=== PATIENT | female | born 1960 | race Caucasian/White ===

== ENCOUNTER → 2017-12-16 | Outpatient (REF) | payer BC, OTHER | LOC: M LAB REF 13:33 | DX: K14.0 Glossitis (principal) | CPT/HCPCS: 82607 ==

== ENCOUNTER → 2019-03-25 | Outpatient (CLI) | payer BC, OTHER ==
--- NOTE | 2019-03-25 14:32 | REP ---
REASON: Pain. PRIORS: None. Mild degenerative changes are seen throughout the foot. There is no acute fracture. There is a large plantar calcaneal heel spur. Electronically Signed by Doug Brar DO 03/25/2019 03:25 P
== END ==
LOC: M ADAMS 13:35
PROVIDERS: ATTEND Physician Assistant
DX: M77.32 Calcaneal spur, left foot (principal); M19.072 Primary osteoarthritis, left ankle and foot

== ENCOUNTER → 2020-05-05 | Outpatient (REF) | payer BC, OTHER ==
[2020-05-12 12:07] LABS: ANTINUCLEAR ANTIBODIES DIRECT Negative (Negative)
== END ==
LOC: M LAB REF 16:12
PROVIDERS: ATTEND Nurse Practitioner Adult Health
DX: D48.5 Neoplasm of uncertain behavior of skin (principal)

== ENCOUNTER → 2020-07-23 | Outpatient (REF) | payer BC, OTHER ==
[2020-07-23 18:14] LABS: URIC ACID 7.5 MG/DL (2.6-6.0)
[2020-07-24 11:59] LABS: PTH INTACT 56.6 PG/ML (18.5-88.0)
== END ==
LOC: M LAB REF 16:29
PROVIDERS: ATTEND Nurse Practitioner Adult Health
DX: M10.9 Gout, unspecified (principal)

== ENCOUNTER → 2020-09-24 | Outpatient (REF) | payer BC, OTHER | LOC: M LAB REF 12:43 | PROVIDERS: ATTEND Nurse Practitioner Adult Health | DX: M10.9 Gout, unspecified (principal) ==

== ENCOUNTER → 2021-04-16 | Outpatient (CLI) | payer BC, OTHER | LOC: M WUC 13:49 | PROVIDERS: ATTEND Nurse Practitioner Adult Health | DX: M25.552 Pain in left hip (principal) ==

== ENCOUNTER → 2021-06-01 | Outpatient (REF) | payer BC, OTHER ==
[2021-06-03 17:09] LABS: ANTINUCLEAR ANTIBODIES DIRECT Negative (Negative); Lyme Disease IgG/IgM Antibodie <0.91 ISR (0.00-0.90); Lyme Disease IgM Ab Quantitati <0.80 index (0.00-0.79)
== END ==
LOC: M LAB REF 15:57
PROVIDERS: ATTEND Nurse Practitioner Adult Health
DX: R53.83 Other fatigue (principal)

== ENCOUNTER → 2021-09-01 | Outpatient (REF) | payer BC, OTHER | LOC: M LAB REF 12:09 | PROVIDERS: ATTEND Nurse Practitioner Adult Health | DX: Z79.899 Other long term (current) drug therapy (principal) ==

== ENCOUNTER → 2022-04-21 | Outpatient (REF) | payer BC, OTHER | LOC: M LAB REF 16:23 | PROVIDERS: ATTEND Nurse Practitioner Adult Health | DX: M85.80 Other specified disorders of bone density and structure, unspecified site (principal) ==

== ENCOUNTER → 2022-11-24 | Outpatient (REF) | payer BC | LOC: M LAB REF 11:39 | PROVIDERS: ATTEND Physician Assistant Medical | DX: M85.80 Other specified disorders of bone density and structure, unspecified site (principal) ==

== ENCOUNTER → 2023-07-13 | Outpatient (REF) | payer BC | LOC: M LAB REF 12:06 | PROVIDERS: ATTEND Physician Assistant Medical | DX: M85.80 Other specified disorders of bone density and structure, unspecified site (principal); Z79.899 Other long term (current) drug therapy ==

== ENCOUNTER → 2023-09-22 | Outpatient (REF) | payer BC ==
[2023-09-22 13:06] LABS: PHOSPHORUS LEVEL 4.3 MG/DL (2.4-5.1); PTH INTACT 44.3 PG/ML (18.5-88.0)
== END ==
LOC: M LAB REF 11:45
PROVIDERS: ATTEND Physician Assistant Medical
DX: Z79.899 Other long term (current) drug therapy (principal); N18.30 Chronic kidney disease, stage 3 unspecified

== ENCOUNTER → 2023-09-22 | Outpatient (REF) | payer BC ==
[2023-09-23 07:28] LABS: LDL DIRECT 112 mg/dL (<100)
== END ==
LOC: M LAB REF 12:08
PROVIDERS: ATTEND Physician Assistant Medical
DX: E78.00 Pure hypercholesterolemia, unspecified (principal)

== ENCOUNTER → 2024-01-06 | Outpatient (CLI) | payer OTHER | LOC: M RAD 10:01 | PROVIDERS: ATTEND Internal Medicine | DX: M25.552 Pain in left hip (principal); M25.562 Pain in left knee ==

== ENCOUNTER → 2024-01-06 | Outpatient (CLI) | payer BC, OTHER | LOC: M RAD 09:58 | PROVIDERS: ATTEND Physician Assistant Medical | DX: R22.1 Localized swelling, mass and lump, neck (principal); Z85.3 Personal history of malignant neoplasm of breast ==